=== PATIENT | male | born 1960 | race Caucasian/White ===

== ENCOUNTER → 2017-07-04 | Outpatient (CLI) | payer BC, SELFPAY ==
[2017-07-04 10:46] LABS: BASOPHILS ABSOLUTE AUTO 0.04 K/mm3 (0.00-0.23); BASOPHILS PERCENT AUTO 0 % (0-2); EOSINOPHILS ABSOLUTE AUTO 0.13 K/mm3 (0.00-0.68); EOSINOPHILS PERCENT AUTO 1 % (0-6); Hematocrit 43.8 % (37.0-53.0); Hemoglobin 14.9 g/dL (13.5-17.5); IMMATURE GRAN ABSOLUTE AUTO 0.11 K/mm3 (0.00-0.10); IMMATURE GRAN PERCENT AUTO 1 % (0-1); LYMPHOCYTES ABSOLUTE AUTO 1.43 K/mm3 (0.84-5.20); LYMPHOCYTES PERCENT AUTO 9 % (21-46); MONOCYTES ABSOLUTE AUTO 1.25 K/mm3 (0.16-1.47); MONOCYTES PERCENT AUTO 8 % (4-13); Mean Corpuscular HGB 29.3 pg (26.0-34.0); Mean Corpuscular Volume 86 fL (80-100); Mean Platelet Volume 9.8 fL (9.1-12.4); NEUTROPHILS ABSOLUTE AUTO 13.57 K/mm3 (1.96-9.15); NEUTROPHILS PERCENT AUTO 82 % (41-73); Platelet Count 240 K/mm3 (150-400); RDW Standard Deviation 38.3 fL (35.1-46.3); Red Blood Cell Count 5.09 M/mm3 (4.30-5.90); White Blood Cell Count 16.53 K/mm3 (4.00-11.30)
[2017-07-04 11:18] LABS: Alanine Aminotransfer (ALT/SGP 15 U/L (12-78); Albumin, Blood 4.2 g/dL (3.4-5.0); Albumin/Globulin Ratio 1.3 (0.8-1.8); Alk Phos 65 U/L (50-136); Anion Gap 7 mmol/L (6-16); Aspartate Aminotrans (AST/SGOT 8 U/L (12-37); Bilirubin, Total 0.7 mg/dL (0.1-1.0); Blood Urea Nitrogen 16 mg/dL (8-24); Bun/Creatinine Ratio 19.2 (12.0-20.0); CO2, Blood 30 mmol/L (21-32); Chloride, Blood 98 mmol/L (98-108); Creatinine, Blood 0.84 mg/dL (0.60-1.20); Globulin, Blood 3.2 g/dL (2.2-4.0); Glomerular Filtration Rate >60 (60-); Glucose, Blood 113 mg/dL (70-99); Sodium, Blood 135 mmol/L (136-145); Total Protein, Blood 7.4 g/dL (6.4-8.2)
[2017-07-04 11:20] LABS: C-REACTIVE PROTEIN, EXT RANGE >19.000 mg/dL (0.000-0.300)
== END | disposition home or self-care (01) ==
LOC: LAB 10:32
PROVIDERS: Hospitalist
DX: R22.1 Localized swelling, mass and lump, neck (principal)
CPT/HCPCS: 80053; 85025; 86140

== ENCOUNTER → 2021-07-29 | Outpatient (CLI) | payer BC | END | disposition home or self-care (01) | LOC: LAB SHORT 07:49 | DX: R60.0 Localized edema (principal) | CPT/HCPCS: 88305; 88312 ==

== ENCOUNTER → 2022-02-02 | Outpatient (CLI) | payer OTHER ==
[2022-02-02 15:51] LABS: Appearance, Urine Clear (Clear); Bilirubin, Urine Neg (Neg); Blood, Urine Neg (Neg); Color, Urine Yellow (P-Yellow); Glucose Qualitative, Urine Neg (Neg); Ketones, Urine Neg (Neg); Leukocyte Esterase, Urine 3+ (Neg); Nitrite, Urine Neg (Neg); Protein, Urine Neg (Neg); Specific Gravity, Urine 1.005 (1.003-1.022); Urobilinogen, Urine NORM (Normal)
[2022-02-02 16:03] LABS: Bacteria Few /hpf; Red Blood Cells, Urine 0-2 /hpf (0-2); Squamous Epithelial Cells Few /hpf (Few)
== END | disposition home or self-care (01) ==
LOC: LAB SHORT 08:00 → LAB FUT 02-01 15:05
PROVIDERS: Dermatology
DX: L53.8 Other specified erythematous conditions (principal)
CPT/HCPCS: 81001; 87086

== ENCOUNTER 2023-01-28 10:51 | Day surgery (SDC) | payer OTHER ==
[~2023-01-28] VITALS: Ht 175.3 cm; Wt 131.5 kg
[~2023-01-28 10:51] MED LIST: BUPROPION HCL200 M2 PO; BUSPIRONE HCL7.5 M1 PO; Dapsone25 MG; ESCI10 PO; LOSARTAN-HCTZ1 EACH PO; PRAM.5 PO; TRAZ100 PO
[2023-01-28] MEDS ORDERED: PRED20 (11:09)
[2023-01-28 16:37] VITALS: BP 150/72
== END 2023-01-28 16:41 | disposition home or self-care (01) ==
LOC: ORSCSDS 10:51
PROVIDERS: Internal Medicine Gastroenterology
PROC: 0DJD8ZZ Inspection of Lower Intestinal Tract, Via Natural or Artificial Opening Endoscopic (ICD-10-PCS; principal; 2023-01-28 12:15)
DX: Z12.11 Encounter for screening for malignant neoplasm of colon (principal); Z86.010 Personal history of colon polyps; Z80.0 Family history of malignant neoplasm of digestive organs; G47.33 Obstructive sleep apnea (adult) (pediatric); I10 Essential (primary) hypertension; Z79.899 Other long term (current) drug therapy
CPT/HCPCS: J2704; J7120

== ENCOUNTER → 2023-06-28 | Outpatient (CLI) | payer OTHER ==
[~2023-06-28] MED LIST changes: +PRED20
== END ==
LOC: LAB SHORT 13:17 → LAB 13:17
DX: L08.0 Pyoderma (principal)
CPT/HCPCS: 87070; 87205

== ENCOUNTER 2024-05-29 07:29 | Inpatient (IN) | payer OTHER ==
[~2024-05-29] VITALS: Ht 175.3 cm; Wt 140.6 kg
[2024-05-29] VITALS (14 sets, daily range): BP systolic 116–155; BP diastolic 41–81
[2024-05-29] MEDS ORDERED: Potassium Chlo20 ME1 PO (08:01)
[2024-05-29] MEDS ORDERED: ESCI10 PO (08:01)
[2024-05-29] MEDS ORDERED: FUROSEMIDE40 MG PO (08:01)
[2024-05-29] MEDS ORDERED: DAPSONE PO (08:01)
[2024-05-29] MEDS ORDERED: EUTHYROX25 MC1 PO (08:01)
[2024-05-29] MEDS ORDERED: BUSPIRONE HCL7.5 M6 PO (08:02)
[2024-05-29] MEDS ORDERED: LOSARTAN-HCTZ1 EACH PO (08:02)
[2024-05-29] MEDS ORDERED: TRAZ100 PO (08:02)
[2024-05-29] MEDS ORDERED: PRAMIPEXOLE DI0.5 M1 PO (08:02)
[2024-05-29] MEDS ORDERED: PROAIR DIGIHAL90 MCG INH (08:03)
[2024-05-29 08:40] LABS: BASOPHILS ABSOLUTE AUTO 0.03 K/mm3 (0.00-0.23); BASOPHILS PERCENT AUTO 0 % (0-2); EOSINOPHILS PERCENT AUTO 1 % (0-6); Hematocrit 34.8 % (37.0-53.0); Hemoglobin 11.3 g/dL (13.5-17.5); IMMATURE GRAN ABSOLUTE AUTO 0.09 K/mm3 (0.00-0.10); IMMATURE GRAN PERCENT AUTO 1 % (0-1); LYMPHOCYTES ABSOLUTE AUTO 1.23 K/mm3 (0.84-5.20); LYMPHOCYTES PERCENT AUTO 9 % (21-46); MONOCYTES ABSOLUTE AUTO 1.02 K/mm3 (0.16-1.47); MONOCYTES PERCENT AUTO 7 % (4-13); Mean Corpuscular HGB 31.2 pg (26.0-34.0); Mean Corpuscular HGB Conc 32.5 g/dL (31.5-36.5); Mean Corpuscular Volume 96 fL (80-100); Mean Platelet Volume 9.9 fL (9.1-12.4); NEUTROPHILS PERCENT AUTO 82 % (41-73); Platelet Count 184 K/mm3 (150-400); RDW Coefficient Variation 15.2 % (11.7-14.2); RDW Standard Deviation 53.8 fL (35.1-46.3); Red Blood Cell Count 3.62 M/mm3 (4.30-5.90); White Blood Cell Count 13.97 K/mm3 (4.00-11.30)
[2024-05-29 08:54] LABS: Albumin, Blood 3.6 g/dL (3.4-5.0); Bilirubin, Total 1.3 mg/dL (0.1-1.0); Bun/Creatinine Ratio 16.8 (12.0-20.0); Calcium, Blood 8.9 mg/dL (8.5-10.1); Creatinine, Blood 1.07 mg/dL (0.60-1.20); Globulin, Blood 3.5 g/dL (2.2-4.0); Potassium, Blood 4.1 mmol/L (3.5-5.5); Total Protein, Blood 7.1 g/dL (6.4-8.2)
[2024-05-29] MEDS ORDERED: HYDROcodone 5-APAP 325 TAB PO PRN (10:50)
[2024-05-29] MEDS ORDERED: FLU VACC TS2024-25(6MOS UP)/PF 45 MCG/0.5 ML SYRINGE IM SCH (10:50)
[2024-05-29] MEDS ORDERED: Ondansetron HCl 2 MG / ML 2ML Vial IV PRN (10:50)
[2024-05-29] MEDS ORDERED: Lactated Ringer's 1,000 ML IV SCH ×3 (10:50→14:40)
[2024-05-29] MEDS ORDERED: FentaNYL Citrate 50 MCG/ML 2 ML Injection IV PRN ×2 (10:55→14:05)
[2024-05-29] MEDS ORDERED: Ampicillin Sod/Sulbactam Sod 3 GM in NS 100 ML IV SCH (11:30)
[2024-05-29] MEDS ORDERED: Bupivacaine 0.5% HCl 5 MG/ML 30MLVIAL ONE (12:49)
[2024-05-29] MEDS ORDERED: Ipratropium/Albuterol SulF 2.5-0.5MG/3 ML Amp INH ONE (12:50)
[2024-05-29] MEDS ORDERED: propofoL 20 ML IV ONE ×2 (12:52→14:39)
[2024-05-29] MEDS ORDERED: FentaNYL Citrate 50 MCG/ML 2 ML Injection ONE (12:52)
[2024-05-29] MEDS ORDERED: Dexamethasone Sod Phos 10 MG/ML 1ML VIAL ONE (13:14)
[2024-05-29] MEDS ORDERED: Ketorolac Tromethamine 30mg Vial IV PRN (14:10)
[2024-05-29] MEDS ORDERED: Sugammadex Sodium 200 MG/2ML SDV (100 MG/ML) ONE (14:12)
[2024-05-29] MEDS ORDERED: Ondansetron HCl 2 MG / ML 2ML Vial ONE (14:12)
--- NOTE | 2024-05-29 16:12 | NUR ---
ARRIVAL TO UNIT AFTER RECEIVING REPORT FROM [facility] RN, PATIENT TRANSFERRED TO UNIT VIA RNEY AT APPROX 1530. RT AT BEDSIDE - PATIENT ARRIVED ON CPAP WITH 15L BLEED IN, SATs 90-93%. BIPAP SETTINGS IN PLACE. RT DISCUSSED POSSIBLE NEED TO TRANSITION TO V60. PATIENT ALERT, COMMUNICATING NEEDS APPROPRIATELY. PATIENT PLACED ON 8L VIA HI FLOW NC, SATs SUSTAINING 90-93%. PATIENT DENIES SHORTNESS OF BREATH. LUNG SOUNDS DIM T/O. DOES USE CPAP AT HOME WITH SLEEP - IS UNSURE OF DEVICE SETTINGS. DOES NOT USE OXYGEN WHILE AWAKE. DRUG ENFORCEMENT AGENT DESIREE NOTIFIED MD BENITES OF UPDATE - RECEIVED ORDER FOR HOSPITALIST CONSULT. VSS. CONTINUOUS OXYGEN MONITORING IN PLACE - PLAN TO TITRATE OXYGEN USE ABLE. THIS RN CONTACTED MD CRAWLEY FOR HOSPITALIST CONSULT - MD TO BEDSIDE TO ASSESS PATIENT. S/P LAP APPY W/ X3 SITES - SITES C/D/I. REPORTS 5/10 ABD PAIN. TOLERATING SMALL SIPS OF WATER WITHOUT N/V. LR INFUSING TO GRAVITY. CALL LIGHT IN REACH. AT BEDSIDE. WILL CONTINUE TO MONITOR.
--- NOTE | 2024-05-29 18:00 | NUR ---
SHIFT SUMMARY NO ACUTE CHANGES SINCE ARRIVAL TO UNIT. PATIENT REMAINS ALERT AND ORIENTED X4. COMMUNICATING NEEDS EFFECTIVELY. TITRATED TO 7L VIA HI FLOW NC, SATs SUSTAINING 90-94%. CPAP DEVICE REMAINS AT BEDSIDE. BP STABLE, SBP 120s-140s. MAP >65. TOLERATING SOME PO INTAKE - LR INFUSING PER EMAR. X3 LAP SITES REMAIN C/D/I. ABD PAIN TOLERABLE @ THIS TIME. CALL LIGHT IN REACH. WILL CONTINUE TO MONITOR AND REPORT TO ONCOMING RN.
[2024-05-29] MEDS ORDERED: BusPIRone HCl 5 MG Tab PO SCH (21:00)
[2024-05-29] MEDS ORDERED: Pramipexole DI-HCL 0.25 MG Tab PO SCH (21:00)
[2024-05-29] MEDS ORDERED: Docusate Sodium 100 MG Cap PO SCH (21:00)
[2024-05-30 00:44] VITALS: BP 149/73
[2024-05-30 03:47] VITALS: BP 144/69
[2024-05-30 04:55] LABS: BASOPHILS ABSOLUTE AUTO 0.02 K/mm3 (0.00-0.23); BASOPHILS PERCENT AUTO 0 % (0-2); EOSINOPHILS PERCENT AUTO 0 % (0-6); Hematocrit 32.8 % (37.0-53.0); Hemoglobin 10.8 g/dL (13.5-17.5); IMMATURE GRAN ABSOLUTE AUTO 0.11 K/mm3 (0.00-0.10); IMMATURE GRAN PERCENT AUTO 1 % (0-1); LYMPHOCYTES ABSOLUTE AUTO 0.87 K/mm3 (0.84-5.20); LYMPHOCYTES PERCENT AUTO 5 % (21-46); MONOCYTES ABSOLUTE AUTO 0.92 K/mm3 (0.16-1.47); MONOCYTES PERCENT AUTO 5 % (4-13); Mean Corpuscular HGB 31.5 pg (26.0-34.0); Mean Corpuscular HGB Conc 32.9 g/dL (31.5-36.5); Mean Corpuscular Volume 96 fL (80-100); Mean Platelet Volume 10.2 fL (9.1-12.4); NEUTROPHILS ABSOLUTE AUTO 16.11 K/mm3 (1.96-9.15); NEUTROPHILS PERCENT AUTO 89 % (41-73); Platelet Count 205 K/mm3 (150-400); RDW Coefficient Variation 15.3 % (11.7-14.2); RDW Standard Deviation 53.3 fL (35.1-46.3); Red Blood Cell Count 3.43 M/mm3 (4.30-5.90); White Blood Cell Count 18.03 K/mm3 (4.00-11.30)
[2024-05-30 06:41] LABS: Bun/Creatinine Ratio 22.5 (12.0-20.0); Calcium, Blood 8.7 mg/dL (8.5-10.1); Creatinine, Blood 0.98 mg/dL (0.60-1.20); Potassium, Blood 4.2 mmol/L (3.5-5.5)
[2024-05-30 07:38] VITALS: BP 158/74
--- NOTE | 2024-05-30 08:04 | NUR ---
SHIFT SUMMARY NOC. PT POD 1 FOR LAP APPY. LAP SITES C/D/I X3. PT TITRATED FROM 6L TO 3L. PT USING IS. REPORTS PAIN IS 2/10 AND DECLINES MEDICATION T/O SHIFT. PT VOIDING AND PASSING GAS. CALL LIGHT IN REACH.
[2024-05-30] MEDS ORDERED: Losartan/HCTZ 50-12.5 TAB PO SCH (09:00)
[2024-05-30] MEDS ORDERED: Citalopram Hydrobromide 20 MG Tab PO SCH (09:00)
[2024-05-30] MEDS ORDERED: Potassium Chloride 20 MEQ TabCR PO SCH (09:00)
[2024-05-30] MEDS ORDERED: Levothyroxine Sodium 0.025 MG Tab PO SCH (09:00)
[2024-05-30] MEDS ORDERED: Furosemide 40 MG Tab PO SCH (09:00)
[2024-05-30 14:15] VITALS: BP 174/68
[2024-05-30 14:17] VITALS: BP 158/67
--- NOTE | 2024-05-30 16:22 | NUR ---
SHIFT SUMMARY PT IS POD#1 FROM LAP APPY. PT HAS HAD MINIMAL PAIN, HE HAS NOT REQUIRED PAIN MEDICATION. PT IS A 1 ASSIST WHEN OOB. PT IS STILL REQUIRING 1L O2 VIA NC WHEN AWAKE. HE HAS BEEN USING HIS INCENTIVE SPIROMETER. PT IS TOLERATING PO AND HAS BEEN ABLE TO PASS FLATUS.
[2024-05-30 19:56] VITALS: BP 160/83
[2024-05-31 03:10] VITALS: BP 139/83
--- NOTE | 2024-05-31 04:28 | NUR ---
SHIFT SUMMARY POD2 LAP APPY. X3 LAP SITES ARE C/D/I, MILD BRUISING NOTED AROUND INCISION. VSS, MULTIPLE UNSUCCESSFUL ATTEMPTS HAVE BEEN MADE TO WEAN THE PT OFF OF THE NASAL CANNULA. AT REST, SPO2 NOTED TO DROP TO THE HIGH 70'S ON RA. PT REPORTS NO SYMPTOMS. WHEN PLACED ON 0.5 LPM, SPO2 RISES TO 92%. PT HAS NOT SLEPT T/O THE NIGHT. REPORTS HE CANNOT SLEEP WHEN HE IS NOT AT HOME. REPORTS MINIMAL SURGICAL PAIN T/O THE NIGHT, BUT ENDORSES GAS/PERISTALSIS PAIN THAT IS RELIEVED W/ BM'S OR PASSING FLATTUS. PT TOLLERATING PO INTAKE, DENIES N/V. AWAITING LAB RESULTS THIS AM. THE PATIENT IS CURRENTLY RESTING, IN NO DISRESS, CALL LIGHT IN REACH
[2024-05-31 05:17] LABS: BASOPHILS ABSOLUTE AUTO 0.04 K/mm3 (0.00-0.23); BASOPHILS PERCENT AUTO 0 % (0-2); EOSINOPHILS ABSOLUTE AUTO 0.26 K/mm3 (0.00-0.68); EOSINOPHILS PERCENT AUTO 2 % (0-6); Hematocrit 35.1 % (37.0-53.0); Hemoglobin 11.4 g/dL (13.5-17.5); IMMATURE GRAN ABSOLUTE AUTO 0.13 K/mm3 (0.00-0.10); IMMATURE GRAN PERCENT AUTO 1 % (0-1); LYMPHOCYTES PERCENT AUTO 14 % (21-46); MONOCYTES ABSOLUTE AUTO 0.75 K/mm3 (0.16-1.47); MONOCYTES PERCENT AUTO 5 % (4-13); Mean Corpuscular HGB 31.5 pg (26.0-34.0); Mean Corpuscular HGB Conc 32.5 g/dL (31.5-36.5); Mean Corpuscular Volume 97 fL (80-100); Mean Platelet Volume 10.2 fL (9.1-12.4); NEUTROPHILS ABSOLUTE AUTO 11.18 K/mm3 (1.96-9.15); NEUTROPHILS PERCENT AUTO 78 % (41-73); Platelet Count 238 K/mm3 (150-400); RDW Coefficient Variation 15.1 % (11.7-14.2); RDW Standard Deviation 54.4 fL (35.1-46.3); Red Blood Cell Count 3.62 M/mm3 (4.30-5.90); White Blood Cell Count 14.36 K/mm3 (4.00-11.30)
[2024-05-31 05:44] LABS: Bun/Creatinine Ratio 23.1 (12.0-20.0); Creatinine, Blood 1.04 mg/dL (0.60-1.20); Potassium, Blood 3.7 mmol/L (3.5-5.5)
[2024-05-31 07:00] VITALS: BP 142/84
[2024-05-31] MEDS ORDERED: Amoxicillin/Clavulanate K 875 MG Tab PO SCH (10:05)
[2024-05-31] MEDS ORDERED: Lactobacil 2-S.Thermo-Bifido 1 1 Cap PO SCH ×2 (10:25→21:00)
--- NOTE | 2024-05-31 10:55 | NUR ---
Pt. is a child and the child is somnolent. Pts. father is at bedside and welcomes my visit. Pts. young brother is also present. Facilitated a life review. Considered matters of benito and belief. Listen with empathy and a calming present. family displays evidence of being engaged and open in our conversation. Father welcomed prayed for the Pt. Prayed for Pt. Father verbalized gratitude for the spiritual care visit.
--- NOTE | 2024-05-31 11:04 | NUR ---
Pt. is awake and sitting up in a chair when he welcomed my visit. Pt. is pleasant. Spouse is at bedside. Facilitated a life review and considered matters of benito and belief and along the way some rapport is established. Pt. displayed evidence of being engaged and motivated to go home. Pryaed for Pt. Pt. and spouse verbalized gratitude for the spiritual care visit.
[2024-05-31] MEDS ORDERED: AMOCLA875 PO (11:47)
[2024-05-31 12:18] VITALS: BP 158/78
--- NOTE | 2024-05-31 12:21 | NUR ---
DISCHARGE PT PROVIDED WITH WRITTEN AND VERBAL DISCHARGE INSTRUCTIONS, HE AND HIS REPORTED UNDERSTANDING. PT ABLE TO TOLERATE PO, PAIN MANAGED, PT AMBULATING. O2 SATURATIONS GREATER THAN 90% ON RA. VSS. AUGMENTIN PRESCRIPTION FAXED TO [facility] PER PT REQUEST, CONFIRMATION OF FAX RECEIVED. PT ASSISTED OUT IN W/C AT 1220.
== END 2024-05-31 12:20 | disposition home or self-care (01) | DRG 398 ==
LOC: ER 07:29 → SURS 10:51
PROVIDERS: Family Medicine; Physician Assistant; ADMIT Surgery
PROC: 0DTJ4ZZ Resection of Appendix, Percutaneous Endoscopic Approach (ICD-10-PCS; principal; 2024-05-29 12:30)
DX: K35.32 Acute appendicitis with perforation, localized peritonitis, and gangrene, without abscess (principal); Z68.42 Body mass index [BMI] 45.0-49.9, adult; I10 Essential (primary) hypertension; E03.9 Hypothyroidism, unspecified; J45.909 Unspecified asthma, uncomplicated; E78.5 Hyperlipidemia, unspecified; F41.8 Other specified anxiety disorders; G47.33 Obstructive sleep apnea (adult) (pediatric); Z98.890 Other specified postprocedural states; Z79.899 Other long term (current) drug therapy; Z79.890 Hormone replacement therapy; E66.01 Morbid (severe) obesity due to excess calories
CPT/HCPCS: 36415; 74177; 80048; 80053; 81000; 85025; 94660; 94761; 94762; 99285-25; A9270; J0295; J1100; J2405; J2704; J3010; J7120; Q9967

== ENCOUNTER 2025-06-04 09:20 | Day surgery (SDC) | payer OTHER ==
[2025-06-04] VITALS (12 sets, daily range): BP systolic 102–162; BP diastolic 52–95
[~2025-06-04] VITALS: Ht 172.7 cm; Wt 134.2 kg
[~2025-06-04 09:20] MED LIST changes: +AMOCLA875 PO; +BUSPIRONE HCL7.5 M6 PO; +DAPSONE PO; +EUTHYROX25 MC1 PO; +FUROSEMIDE40 MG PO; +HYDROCHLOROTH12.5 MG PO; +METFORMIN HCL500 MG PO; +MULVITA PO; +OZEMPIC0.25 MG/02 SC; +PRAMIPEXOLE DI0.5 M1 PO; +PROAIR DIGIHAL90 MCG INH; +Potassium Chlo20 ME1 PO; +TREMFYA100 MG/11 SC; +VALSARTAN-HCTZ1 EAC5 PO; +VITAMIN D310 MC5 PO
[2025-06-04] MEDS ORDERED: IBUP400 PO (10:26)
[2025-06-04] MEDS ORDERED: Tranexamic Acid 100 ML IV SCH (10:50)
[2025-06-04] MEDS ORDERED: Chlorhexidine Mouth Care 15 ML UDC MT SCH (10:50)
[2025-06-04] MEDS ORDERED: Ropivacaine 0.5% HCl/Pf 123.125 MG,EPINEPHrine HCL 0.25 MG,Ketorolac Tromethamine 15 MG... INFIL SCH (10:50)
[2025-06-04] MEDS ORDERED: CeFAZolin Sodium 3,000 MG in NS 100 ML IV SCH ×2 (10:50→21:30)
[2025-06-04] MEDS ORDERED: Metoclopramide HCl 5MG / ML 2ML Vial IV PRN (10:55)
[2025-06-04] MEDS ORDERED: FLU VACC TS2025-26(6MOS UP)/PF 45 MCG/0.5 ML SYRINGE IM SCH (11:00)
[2025-06-04] MEDS ORDERED: Ondansetron HCl 2 MG / ML 2ML Vial IV PRN ×2 (11:00→15:55)
--- NOTE | 2025-06-04 11:03 | NUR ---
PATIENT ACCOMANIED BY IN DAY SURGERY. KNEE HIGH MARVIN HOSE WITH CALF PAS APPLIED TO RLE.
[2025-06-04] MEDS ORDERED: HYDROmorphone HCl/Pf 1MG SYR IV PRN ×2 (11:05→15:55)
--- NOTE | 2025-06-04 11:05 | NUR ---
PATIENT NOTED TO HAVE ERYTHEMA TO RIGHT ELBOW, APPROX 3X4 INCH PATCH. PATIENT STATES THIS IS NORMAL AND CAUSED BY LEANING ELBOW ON ARMRAIL. STATES SKIN BECOMES ITCHY AND ALSO CAUSED BY GETTING TOO HOT. STATES ICE HELPS SUBSIDE.
[2025-06-04] MEDS ORDERED: CeFAZolin Sodium 3,000 MG VIAL ONE (11:14)
[2025-06-04] MEDS ORDERED: Magnesium Hydroxide Conc 10 ML UDC PO PRN (11:15)
[2025-06-04] MEDS ORDERED: Insulin Regular 100 UNIT/ML 10ML Vial SC SCH (11:30)
[2025-06-04] MEDS ORDERED: FentaNYL Citrate 50 MCG/ML 2 ML Injection ONE ×2 (12:52→12:54)
[2025-06-04] MEDS ORDERED: Phenylephrine HCl 100 MCG/ML-NS 10MLSYR (1MG/10ML) ONE (13:00)
[2025-06-04] MEDS ORDERED: Rocuronium Bromide 10 MG/ML 5ML Injection IV ONE (13:21)
[2025-06-04] MEDS ORDERED: SuccINYLCHOLINE Chloride 100 MG/5 ML 5MLSYR ONE (13:21)
[2025-06-04] MEDS ORDERED: Ondansetron HCl 2 MG / ML 2ML Vial ONE (14:44)
[2025-06-04] MEDS ORDERED: Sugammadex Sodium 200 MG/2ML SDV (100 MG/ML) ONE (14:54)
[2025-06-04] MEDS ORDERED: FentaNYL Citrate 50 MCG/ML 2 ML Injection IV PRN ×2 (15:55→16:00)
[2025-06-04] MEDS ORDERED: Ketorolac Tromethamine 15mg Vial IV SCH (18:00)
[2025-06-04] MEDS ORDERED: ELIQUIS2.5 M1 PO (18:22)
[2025-06-05] MEDS ORDERED: MetFORMIN HCl 500 mg PO SCH (08:00)
[2025-06-05] MEDS ORDERED: Multivitamins 1 Tab PO SCH (09:00)
== END 2025-06-04 18:55 | disposition home or self-care (01) ==
LOC: ORSCMMR 09:20 → ORD 11:00 → ORSCMMR 11:00 → SURS 16:22 → ORSCMMR 18:55
PROVIDERS: Orthopaedic Surgery
PROC: 0SRD0JA Replacement of Left Knee Joint with Synthetic Substitute, Uncemented, Open Approach (ICD-10-PCS; principal; 2025-06-04 11:00)
DX: M17.12 Unilateral primary osteoarthritis, left knee (principal); E11.9 Type 2 diabetes mellitus without complications; I10 Essential (primary) hypertension; G47.33 Obstructive sleep apnea (adult) (pediatric); E66.01 Morbid (severe) obesity due to excess calories; Z68.42 Body mass index [BMI] 45.0-49.9, adult; F41.9 Anxiety disorder, unspecified; F32.A Depression, unspecified; L40.9 Psoriasis, unspecified; Z79.85 Long-term (current) use of injectable non-insulin antidiabetic drugs; Z79.84 Long term (current) use of oral hypoglycemic drugs; Z79.899 Other long term (current) drug therapy
CPT/HCPCS: 73560-LT; 82947; A9270; C1713; C1776; J0166; J0330; J0690; J0735; J1885; J2371; J2405; J2704; J2795; J3010; J7120